=== PATIENT | female | born 1970 | race Caucasian/White ===

== ENCOUNTER → 2017-10-27 | Day surgery (SDC) | payer OTHER ==
[2017-10-27] VITALS (11 sets, daily range): BP systolic 63–163; BP diastolic 60–83; PULSE 56–71; TEMP 36.8–37.2; O2SAT 95–99; Ht 167.6 cm; Wt 107.0 kg
[~2017-10-27] VITALS: Ht 167.6 cm; Wt 107.0 kg
[~2017-10-27] MED LIST: ACETAMINOPHEN 500 MG TAB PO PRN; HYZ/10015 PO; METO-837 PO; PRLSR20 PO; [UNRECOGNIZED DRUG - CODE] PO
[2017-10-27 09:04] LABS: BASO % 0.5 %; BASO ABS # 0.05 K/uL (0-0.2); EOS % 1.3 %; EOS ABS # 0.12 K/uL (0-0.5); HEMATOCRIT 38.8 % (37-47); HEMOGLOBIN 13.6 g/dL (12.0-16.0); IG# 0.02 K/uL (0.00-0.02); LYMPH % 15.7 %; LYMPH ABS # 1.43 K/uL (1.2-3.4); MEAN CELL VOLUME 82.9 fL (80-100); MEAN CORPUSCULAR HEMOGLOBIN 29.1 pg (25-34); MEAN CORPUSCULAR HGB CONC 35.1 g/dl (32-36); MEAN PLATELET VOLUME 10.6 fL (7.4-10.4); MONO % 5.9 %; MONO ABS # 0.54 K/uL (0.11-0.59); NEUT % 76.4 %; NEUT ABS # 6.95 K/uL (1.4-6.5); PLATELET COUNT 293 K/uL (130-400); RED CELL DISTRIBUTION WIDTH CV 13.6 % (11.5-14.5); RED CELL DISTRIBUTION WIDTH SD 41.2 fL (36.4-46.3); WHITE BLOOD COUNT 9.11 K/uL (4.8-10.8)
[2017-10-27 09:29] LABS: CREATININE 0.77 mg/dl (0.60-1.20)
[2017-10-27 09:30] LABS: CALCIUM 9.3 mg/dl (8.5-10.1); TOTAL PROTEIN 7.6 gm/dl (6.4-8.2)
--- NOTE | 2017-10-27 10:51 | Discharge Instructions ---
Discharge Instructions Procedure Procedure Date: Oct 27, 2017. Reason for visit: Papilledema W/Opening Pressure. Discharge Discharge Date: Oct 27, 2017. Discharge Diagnosis: SAME Instructions Activity Recommendations: 1 Day-May resume regular activity Return to School/Work: no limitations Recommended Home Diet: Resume Previous Diet Provider Instructions: ACTIVITY RECOMMENDATIONS: * Rest today. * Resume regular activity in one day. MEDICATIONS: * May take Tylenol or Ibuprofen as needed for pain. DIET: * Resume previous diet. SPECIAL CARE INSTRUCTIONS: Call your doctor if: * Temperature above 101 degrees F. * Pain not relieved by pain medicine ordered. * Increased drainage or redness from incision. * Notify your doctor with any questions or concerns. Call your doctor or go to the nearest Emergency Department if you experience: * Increased chest pain or shortness of breath. FOLLOW UP VISIT: Follow-up with Referring Physician as scheduled. Allergies Coded Allergies: No Known Allergies (Unverified , 10/27/17) Peter Duncan Recommendations: Call your doctor if: * Temperature above 101 degrees * Pain not relieved by pain medicine ordered * There is increased drainage or redness from any incision * You have any unanswered questions or concerns. Your Doctors Instructions noted above were prepared by provider Juan Diego Haynes. Patient Signature Section: Patient Instructions Signature Page Justina Peraza Patient (or Guardian) Signature/Date: I have read and understand the instructions given to me by my caregivers. Caregiver/RN/Doctor Signature/Date: The above-named patient and/or guardian has received patient instructions on this date. + Original Patient Signature Page (only) stays with chart. Please make copy for patient.
[2017-10-27 11:08] LABS: CSF TOTAL PROTEIN 34.1 mg/dl (15.0-45.0)
--- NOTE | 2017-10-27 11:37 | DIAGNOSTIC IMAGING REPORT ---
LUMBAR PUNCTURE DIAGNOSTIC CLINICAL HISTORY: 47 years-old Female with papilledema. PROCEDURE: The risks, benefits, and alternatives to the procedure is discussed with the patient who voiced understanding. Written informed consent was obtained. The patient was placed prone on the fluoroscopy table. The lower back was prepped and draped in the usual sterile fashion. 1% lidocaine was used for local anesthesia. A 20-gauge spinal needle was inserted into the L2-L3 interlaminar space, and approximately 14 mL of clear colorless cerebrospinal fluid was removed and sent to the laboratory for analysis. Opening pressure was measured at 39 cm of H2O. The patient tolerated the procedure well. There were no immediate complications. The patient was then transported to the medical treatment unit for further observation. FLUOROSCOPY TIME: 0.4 minutes. One spot fluoroscopic image was submitted. IMPRESSION: Successful fluoroscopic guided lumbar puncture without immediate complications. The above report was generated using voice recognition software. It may contain grammatical, syntax or spelling errors. Electronically signed by: Mono Haynes M.D. 10/27/2017 11:35 AM Dictated Date/Time: 10/27/2017 11:34 AM
== END | disposition home or self-care (01) ==
LOC: C.ACU 08:15
PROVIDERS: ATTEND Physician Assistant
DX: H47.10 Unspecified papilledema (principal); H93.A9 Pulsatile tinnitus, unspecified ear